=== PATIENT | male | born 1950 | race Caucasian/White ===

== ENCOUNTER 2020-10-19 09:36 | Emergency (ER) | payer BC ==
[~2020-10-19] VITALS: Ht 162.6 cm; Wt 76.7 kg
[2020-10-19 09:54] VITALS: BP 125/75
--- NOTE | 2020-10-19 09:58 | NUR ---
PT SENT TO LOBBY TO WAIT FOR A BED.
[2020-10-19] MEDS ORDERED: MIRABULK PO (11:12)
--- NOTE | 2020-10-19 11:15 | NUR ---
Patient discharged with v/s stable. Written and verbal after care instructions given and explained. Patient alert, oriented and verbalized understanding of instructions. Ambulatory with steady gait. All questions addressed prior to discharge. ID band removed. Patient advised to follow up with PMD. Rx of Constipation given. Patient educated on indication of medication including possible reaction and side effects. Opportunity to ask questions provided and answered.
== END 2020-10-19 11:15 | disposition home or self-care (01) ==
LOC: MED 09:36
DX: K59.00 Constipation, unspecified (principal); Z98.890 Other specified postprocedural states
CPT/HCPCS: 99282